=== PATIENT | female | born 1970 | race Two or more races ===

== ENCOUNTER 2021-02-21 08:24 | Outpatient (REF) | payer BC, SELFPAY | END 2021-02-21 08:25 | disposition home or self-care (01) | LOC: HO.LAB 08:24 | PROVIDERS: Visit Provider Internal Medicine | DX: Z20.822 Contact with and (suspected) exposure to COVID-19 (principal) | CPT/HCPCS: C9803; U0003; U0005 ==

== ENCOUNTER 2021-10-27 12:49 | Outpatient (REF) | payer BC, SELFPAY ==
--- NOTE | ~2021-10-27 | MM_ITS ---
EXAMINATION: MM SCREENING DIGITAL BREAST TOMOSYNTHESIS, BILATERAL CLINICAL INFORMATION: Screening. Asymptomatic. The lifetime risk of breast cancer based on the Tyrer-Cuzick Model is 11%. COMPARISON: Mammography: 09/24/2017, 05/20/2015, 05/14/2015 TECHNIQUE: Digital breast tomosynthesis is performed in both the craniocaudal and mediolateral oblique views along with computer-aided detection (CAD). Synthesized 2D images are generated from the tomosynthesis. Additional left MLO view is provided. FINDINGS: There are scattered areas of fibroglandular density (ACR BI-RADS breast composition Category b). There are no significant masses, abnormal calcifications, or other abnormalities. There is no developing density. No interval mass. Skin contours are smooth. No significant change from prior study. MM/MM tomosynthesis screening BI IMPRESSION: No mammographic evidence of malignancy. ASSESSMENT: BI-RADS 1: Negative RECOMMENDATION: Routine annual mammography screening. This patient's information was entered into a reminder system with a target due date for their next mammogram.
== END 2021-10-27 12:50 | disposition home or self-care (01) ==
LOC: HO.MAMMO 12:49
PROVIDERS: PCP Internal Medicine; Visit Provider Internal Medicine
DX: Z12.31 Encounter for screening mammogram for malignant neoplasm of breast (principal)
CPT/HCPCS: 77063; 77067

== ENCOUNTER 2022-04-07 11:04 | Outpatient (REF) | payer BC, SELFPAY ==
[2022-04-07 14:22] LABS: CT PCR NOT DETECTED (Not Detect.); NG PCR NOT DETECTED (Not Detect.)
[2022-04-10 19:06] LABS: HPV mRNA E6/E7 rflx Not Detected (Not Detected)
== END 2022-04-07 11:05 | disposition home or self-care (01) ==
LOC: HO.LAB 11:04
PROVIDERS: Visit Provider Advanced Practice Midwife
DX: Z01.419 Encounter for gynecological examination (general) (routine) without abnormal findings (principal); Z11.51 Encounter for screening for human papillomavirus (HPV); Z20.2 Contact with and (suspected) exposure to infections with a predominantly sexual mode of transmission
CPT/HCPCS: 87491; 87591; 87624; 88142

== ENCOUNTER 2022-09-24 16:21 | Outpatient (REF) | payer BC, SELFPAY ==
--- NOTE | ~2022-09-24 | XR_ITS ---
EXAMINATION: XR HAND, RIGHT CLINICAL INFORMATION: Pain COMPARISON: None TECHNIQUE: PA, lateral, and oblique views of the right hand. FINDINGS: The bones and soft tissues are normal. No fracture. Alignment is anatomic. Joint spaces are maintained. No erosions or soft tissue calcifications. XR/XR hand RT 2V IMPRESSION: Unremarkable right hand right hand.
[2022-09-24 16:44] LABS: MANUAL DIFF FLAG NO
[2022-09-24 17:28] LABS: Basophils Absolute Auto 0.1 X10*3/uL (0.0-0.2); Basophils Percent Auto 1.3 % (0-2); Eosinophils Absolute Auto 0.5 X10*3/uL (0.0-0.4); Hemoglobin 9.6 g/dl (12.0-16.0); Imm Gran Abs Auto 0.02 X10*3/uL (0.00-0.03); Imm Gran Pct Auto 0.3 % (0.0-0.4); Lymphocytes Absolute Auto 2.9 X10*3/uL (1.2-4.9); Lymphocytes Percent Auto 36.2 % (20-40); Mean Corpuscular Hemoglobin 20.7 pg (27.0-33.0); Mean Corpuscular Volume 69.1 fL (80.0-98.0); Mean Platelet Volume 9.6 fL (9.4-12.3); Monocytes Absolute Auto 0.5 X10*3/uL (0.1-1.2); Neutrophils Percent Auto 50.2 % (45-73); Platelet Count 461 X10*3/uL (160-400); Red Blood Count 4.63 X10*6/uL (4.20-5.50); Red Cell Distribution Width 19.5 % (11.0-16.0); White Blood Count 7.9 X10*3/uL (4.8-10.8)
[2022-09-24 18:06] LABS: Alanine Aminotransferase 18 U/L (0-31); Albumin Level 4.2 g/dL (3.5-5.0); Alkaline Phosphatase 141 U/L (39-117); Anion Gap 12 (12-20); Aspartate Amino Transferase 22 U/L (5-31); Bilirubin Total 0.3 mg/dL (0.0-1.0); Blood Urea Nitrogen 10 mg/dL (9-16); Carbon Dioxide 25 mmol/L (22-29); Chloride 107 mmol/L (96-108); Cholesterol 244 mg/dL; Estimated Glomerular Filt Rate > 60; Glucose Fasting 120 mg/dL (60-99); HDL Cholesterol 68 mg/dL; Iron 19 mcg/dL (30-160); LDL Cholesterol Calculated 161 mg/dl; Percent Iron Saturation 4 % (15-50); Potassium 4.7 mmol/L (3.3-5.1); Sodium 139 mmol/L (135-145); Thyroid Stimulating Hormone 1.36 uIU/mL (0.32-4.0); Total Iron Binding Capacity 437 mcg/dL (228-428); Total Protein 6.8 g/dL (6.5-8.0); Triglycerides 79 mg/dL; Unsaturated Iron Binding 418 ug/dL
[2022-09-24 18:08] LABS: Calcium 9.1 mg/dL (8.4-10.2)
[2022-09-25 05:14] LABS: Syphilis Screen Nonreactive (Nonreactive)
[2022-09-25 07:30] LABS: HBc Num1 0.07 S/CO (0.00-0.79); HIV AB/AG Nonreactive (Nonreactive); HIV Num 1 0.06 S/CO (0.00-0.99); Hepatitis B Core Antibody Nonreactive (Nonreactive); ~HepC Num1 0.06 S/CO (0.00-0.79); ~Hepatitis C Antibody Nonreactive (Nonreactive)
== END 2022-09-24 16:22 | disposition home or self-care (01) ==
LOC: HO.LAB 16:21
PROVIDERS: Advanced Practice Midwife; PCP Internal Medicine; Visit Provider Internal Medicine
DX: Z00.00 Encounter for general adult medical examination without abnormal findings (principal); D64.9 Anemia, unspecified; M79.641 Pain in right hand; E66.3 Overweight; Z20.2 Contact with and (suspected) exposure to infections with a predominantly sexual mode of transmission
CPT/HCPCS: 36415; 73120; 80053; 80061; 83540; 84443; 85025; 86704; 86780; 86803; 87389

== ENCOUNTER 2023-12-15 10:46 | Outpatient (REF) | payer BC, SELFPAY ==
[2023-12-22 12:49] LABS: HPV mRNA E6/E7 rflx Not Detected (Not Detected)
== END 2023-12-15 10:47 | disposition home or self-care (01) ==
LOC: HO.LNP 10:46
PROVIDERS: Obstetrics & Gynecology; PCP Internal Medicine; Visit Provider Advanced Practice Midwife
DX: Z01.419 Encounter for gynecological examination (general) (routine) without abnormal findings (principal); Z11.51 Encounter for screening for human papillomavirus (HPV)
CPT/HCPCS: 87624; 88142

== ENCOUNTER 2023-12-15 10:46 | Outpatient (AMB) | payer BC, SELFPAY ==
--- NOTE | 2023-12-15 10:49 | MHC.OFFVIS ---
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 She is doing well with no concerns. Attempting to eat a healthy diet with calcium and vitamin D and stays active with walking. Currently sexually active. Denies any vaginal dryness or irritation. STI testing offered; she declines. Last pap smear; 2021. Hx. HPV 2014-. Last mammogram; not UTD, booked 12/2023. Lapse in care due to living in [place] when father passed last year. Colonoscopy is not UTD. Denies any family history of breast, ovarian or colon cancer. [facility] Medical History Physical exam Overweight (BMI 25.0-29.9) Surgical History History of Family History Father No problems noted. Mother No problems noted. Social History Housing: House Alcohol intake: current Alcohol intake frequency: holidays/special occasions only Alcohol type: beer Patient Tobacco Use Status: Never used Tobacco e-Cigarette/Vaping Use: Never Used Second Hand Smoke Exposure: No service: No Current occupational status: employed Current occupational exposures/hazards: No Cognitive needs: No Hearing needs: No Vision needs: No Female Reproductive History Menstrual Total pregnancies: 1 Full term: 1 Number of Living Children: 1 Date of last pap smear: 04/07/22 (neg pap and hpv) Date of Mammogram: 10/27/21 (Birad 1) Review of Systems Const All systems reviewed & are unremarkable except as noted in HPI and below Reports as per HPI Eyes Reports no additional complaints ENT Reports no additional complaints Card Reports no additional complaints Resp Reports no additional complaints GI Reports as per HPI and Reports no additional complaints Reports as per HPI Musc Reports no additional complaints Skin/Breast Reports as per HPI Neuro Reports no additional complaints Psych Reports no additional complaints Endo Reports no additional complaints Hai/Lymph Reports no additional complaints Aller/Immun Reports no additional complaints Physical Exam Vital Signs: Last Vital Signs BP 110/70 12/15/23 10:51 BMI result Body Mass Index 30.3 Const General: cooperative, healthy appearing, no acute distress, well developed and alert Orientation/consciousness: patient oriented x3 HEENT Head: Yes normal to inspection Eyes General: appearance normal, both eyes and all related structures Neck Neck: Yes normal visual inspection Thyroid: Thyroid normal Chest Chest palpation & inspection: normal inspection of the chest and other (no puckering, dimpling, peau de orange, retraction, discharge, masses) Breast/axilla inspection: normal inspection of the breasts Breast/axilla palpation: normal palpation of the breasts Resp Effort & Inspection: normal respiratory effort GI Inspection: Yes normal to inspection Palpation (GI): Soft to palpation Rectal Exam - Female: deferred General: Yes bladder normal to palpation External Female Exam: normal external appearance and normal appearance of the urethra Speculum Exam - Vagina: normal appearance of the vagina, normal palpation, normal vaginal discharge and vagina atrophic Speculum Exam - Cervix: normal appearance of the cervix and normal palpation Bimanual exam- vagina & uterus: normal bimanual exam, normal palpation, uterine size normal, bladder normal to palpation, normal palpation and non-tender Bimanual Exam- Adnexa, other: no masses Skin General skin exam: no rashes or lesions noted Rashes: no rashes Neuro General: patient oriented x3 Cognition (Neuro): normal cognition Extrem General: Yes normal to inspection Psych Attitude: cooperative Thought process: Normal thought process present Assessment & Plan Assessment & Plan (1) Encounter for well woman exam with routine gynecological exam: Code(s): Z01.419 - Encounter for gynecological examination (general) (routine) without abnormal findings Plan Discussed: Current recommendations for pap smears per ASCCP guidelines. Breast awareness, periodic self breast exams and yearly mammogram. Maintain a healthy lifestyle, well balanced diet including Calcium 1,200 mg and Vitamin D 600 IU daily, and routine exercise. Contact the office with any postmenopausal bleeding. Patient verbalizes understanding and agrees to the plan of care. She was given opportunity to ask questions and all questions were answered to the best of my ability. RTO in 1 year for annual ob/gyn exam. This note is constructed using voice recognition software. While every effort has been made to ensure accuracy, differential tester errors may have been included. Orders: Orders Pap Smear Today Z01.419 - Encounter for gynecological examination (general) (routine) without abnormal findings Coding Level of Care Code Est Pt Prev Care 40-64y(54454) Diagnoses Encounter for well woman exam with routine gynecological exam Z01.419
[2023-12-15 10:51] VITALS: BP 110/70; BMI 30.3
== END 2023-12-15 11:17 | disposition home or self-care (01) ==
LOC: HO.HWS 10:46
PROVIDERS: PCP Internal Medicine; Visit Provider Advanced Practice Midwife
DX: Z01.419 Encounter for gynecological examination (general) (routine) without abnormal findings (principal)
CPT/HCPCS: 99396

== ENCOUNTER 2024-01-06 13:51 | Outpatient (REF) | payer BC, SELFPAY | END 2024-01-06 13:52 | disposition home or self-care (01) | LOC: HO.MAMMO 13:51 | PROVIDERS: PCP Internal Medicine; Visit Provider Internal Medicine | DX: Z12.31 Encounter for screening mammogram for malignant neoplasm of breast (principal) | CPT/HCPCS: 77063; 77067 ==

== ENCOUNTER → 2024-01-06 14:15 | Outpatient (BNV) | payer BC, SELFPAY | PROVIDERS: PCP Internal Medicine; Visit Provider Radiology Diagnostic Radiology | DX: Z12.31 Encounter for screening mammogram for malignant neoplasm of breast (principal) | CPT/HCPCS: 77063; 77067 ==

== ENCOUNTER 2025-01-11 13:43 | Outpatient (REF) | payer BC, SELFPAY | END 2025-01-11 13:44 | disposition home or self-care (01) | LOC: HO.MAMMO 13:43 | PROVIDERS: PCP Internal Medicine; Visit Provider Internal Medicine | DX: Z12.31 Encounter for screening mammogram for malignant neoplasm of breast (principal) | CPT/HCPCS: 77063; 77067 ==

== ENCOUNTER → 2025-01-11 14:00 | Outpatient (BNV) | payer BC, SELFPAY | PROVIDERS: PCP Internal Medicine; Visit Provider Internal Medicine | DX: Z12.31 Encounter for screening mammogram for malignant neoplasm of breast (principal) | CPT/HCPCS: 77063; 77067 ==

== ENCOUNTER 2025-01-22 08:24 | Outpatient (AMB) | payer BC, SELFPAY ==
--- NOTE | 2025-01-22 08:28 | A.OFFPC_ITS ---
Vital Signs 01/22/25 08:30 Height 5 ft 6 in Weight 179 lb BMI 28.9 BP 110/58 L Blood Pressure Location Lt brachial Position Sitting Pulse 66 Pulse Source Pulse Oximeter Temp 97.5 F Temp Source Temporal Artery Scan Pulse Oximetry (%) 97 Oxygen Delivery Method Room Air Intake Visit Reasons: annual physical Intake Note: Patient is here today for a physical. 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: Pre[employer] Name: Radha Modi Information Interpreted: non-clinical & clinical Shale Miner: Not Required per policy Accompanied by: Self / Same As Patient Allergies No Known Allergies [No Known Allergies*] Allergy (Verified 01/22/25 08:39) Medication List - Last Reconciled 01/22/25 by ANTHONY Villegas No Known Home Meds Tobacco use date assessed: 01/22/25 Dental Screening Dental Screen Date: 01/22/25 Did you have a dental visit in the last 12 months?: Yes Did you have a dental problem in the last 6 months where you did not have access to dental care?: No Was dental information given to patient?: Patient has dentist HPI annual physical HPI Details Patient is a 54-year-old female was presenting for annual physical Dentist: up to date Eye: up to date Snellen: Right: Left: Corrected vision:glasses STI screening: Colonoscopy: She has never done a colonoscopy before and would like to be scheduled Mammogram: last week Pap Smer: In Feb, 2025 PHQ-9: Flu: decline COVID: x 4 Tdap: reports that she know that she had it done, but she cannot remember when Diet: regular Exercise: walks on the treadmill 3 times a week for 30 minutes Reports that she has no concerns today. The patient is never done a colonoscopy. Reports that this is part of the reason why she is here today we will refer the patient to GI. [facility] Medical History Physical exam Overweight (BMI 25.0-29.9) Surgical History History of Family History Father No problems noted. Mother No problems noted. Social History Housing: House Alcohol intake: current Alcohol intake frequency: holidays/special occasions only Alcohol type: beer Patient Tobacco Use Status: Never used Tobacco e-Cigarette/Vaping Use: Never Used Second Hand Smoke Exposure: No service: No Current occupational status: employed Current occupational exposures/hazards: No Cognitive needs: No Hearing needs: No Vision needs: Yes (Glasses) Questionnaire PHQ-9 Over the last 2 weeks, how often have you been bothered by any of the following problems? 1. Little interest or pleasure in doing things: not at all 2. Feeling down, depressed, or hopeless: not at all 3. Trouble falling or staying asleep, or sleeping too much: several days 4. Feeling tired or having little energy: not at all 5. Poor appetite or overeating: not at all 6. Feeling bad about yourself - or that you are a failure or have let yourself or your family down: not at all 7. Trouble concentrating on things, such as reading the newspaper or watching television: not at all 8. Moving or speaking so slowly that other people could have noticed. Or the opposite - being so fidgety or restless that you have been moving around a lot more than usual: not at all 9. Thoughts that you would be better off or of hurting yourself in some way: not at all Total score: 1 Depression Screening Interpretation: Negative Depression Screening Done: Yes 25450 - PHQ-9 Billing: Yes Source: Developed by Drs. Raymond Lockett, Cindi Alfaro, Sharath Cruz and colleagues, with an educational hollie from [employer]. Thrive Questionnaire Date Thrive assessed: 01/22/25 I am a: Patient What is your living situation today?: I have a steady place to live Within the past 12 months, did the food you bought not last and you didn't have the money to get more?: Never true Within the past 12 months, did you worry whether your food would run out before you got money to buy more?: Never true Do you have trouble paying for medicines?: No Do you have trouble getting transportation to medical appointments?: No Do you have trouble paying your heating and electricity bill?: I choose not to answer this question Do you have trouble taking care of your child, family member or friend?: No Do you have trouble with day-to-day activities such as bathing, preparing meals, shopping, managing finances, etc.?: No Are you currently unemployed and looking for a job?: No Are you interested in more education?: No Please select the resources that you would like help with: Utilities Currently or been in a relationship where the following occur: No concerns reported THRIVE Score: 0 AUDIT C Alcohol Use Questionnaire (AUDIT-C) 1. How often do you have a drink containing alcohol?: Monthly or less 2. How many drinks containing alcohol do you have on a typical day when you are drinking?: 3 or 4 3. How often do you have six or more drinks on one occasion?: Less than monthly Total Score: 3 ANEESH-7 AMB Questionnaire ANEESH-7 Date ANEESH - 7 assessed: 01/22/25 Feeling nervous, anxious, or on edge: 0 = Not at all Not being able to stop or control worryin = Not at all Worrying too much about different things: 0 = Not at all Trouble relaxin = Not at all Being so restless that it is hard to sit still: 0 = Not at all Becoming easily annoyed or irritable: 0 = Not at all Feeling afraid as if something awful might happen: 0 = Not at all Total ANEESH-7 score (0-4 normal; 5-9 mild; 10-14 moderate; 15-21 severe): 0 Source: Developed by Drs. Raymond Lockett, Cindi Alfaro, Sharath Cruz and colleagues, with an educational hollie from [employer]. ANEESH-7 Assessment Billing ANEESH-7 Assessment Tool: ANEESH-7 Assessment 48266 Review of Systems Const Denies headache(s) Eyes Denies loss of vision ENT Denies vertigo, Denies dizziness, Denies otalgia, Denies headache(s), Denies tinnitus, Denies sinus pressure and Denies sore throat Card Denies chest pain, Denies leg edema and Denies lightheadedness Resp Denies cough, Denies hemoptysis and Denies wheezing GI Denies abdominal pain, Denies melena, Denies constipation, Denies diarrhea and Denies vomiting Denies urinary frequency, Denies dysuria and Denies urinary urgency Musc Denies arthralgias, Denies joint swelling, Denies numbness and Denies tingling Neuro Denies Abnormal speech present, Denies behavioral changes, Denies vertigo, Denies dizziness, Denies headache(s), Denies loss of vision, Denies memory loss, Denies numbness and Denies tingling Psych Denies anxiety, Denies behavioral changes, Denies depression, Denies memory loss and Denies panic attacks Hai/Lymph Denies easy bleeding and Denies easy bruising Aller/Immun Denies wheezing Physical exam (Primary Care) Vital Signs: Last Vital Signs Temp 97.5 F 01/22/25 08:30 Pulse 66 01/22/25 08:30 BP 110/58 L 01/22/25 08:30 Pulse Ox 97 01/22/25 08:30 Oxygen Delivery Method Room Air 01/22/25 08:30 BMI result Body Mass Index 28.9 Tobacco/Smoking Status: Tobacco use Status Tobacco use date assessed 01/22/25 01/22/25 08:37 Patient Tobacco Use Status Never used Tobacco 01/22/25 08:37 e-Cigarette/Vaping Use Never Used 01/22/25 08:37 PHQ-9: PHQ-9 Score PHQ-9: Total score 1 01/22/25 08:37 Depression Screening Interpretation: Negative Thrive Assessment: Date of Thrive Assessment Date Thrive assessed 01/22/25 01/22/25 08:37 Currently or been in a relationship where the following occur: No concerns reported Const General: healthy appearing, no acute distress, alert and awake Nutritional Appearance: well nourished Orientation/consciousness: oriented to person, oriented to place and oriented to time [facility] Ears: TM normal on the right, TM normal on the left (unable to visualize) and Abnormal EAC present cerumen impaction on the left General nose exam: Normal nasal mucous membranes and turbinates present Mouth: oropharynx normal Throat: Yes posterior oropharynx normal Eyes Conjunctivae: conjunctivae normal Sclerae: sclerae normal Pupils: Equal, round and reactive pupils present Neck Neck: Yes no lymphadenopathy and Yes no JVD Thyroid: Thyroid normal Carotids: no bruits Resp Effort & Inspection: normal respiratory effort and not tachypneic Auscultation: no crackles, no rales, no rhonchi and no wheezes Cardio Rate: regular rate Rhythm: regular rhythm Heart sounds: no murmurs and normal S1 and S2 GI Palpation (GI): Soft to palpation, nontender, no hepatomegaly and no splenomegaly Auscultation: normal bowel sounds Skin General skin exam: no rashes or lesions noted and dry skin Neuro General: oriented to person, oriented to place and oriented to time Cranial nerves: Yes Equal, round and reactive pupils present Speech: No Abnormal speech present Gait exam (Neuro): Normal gait present Motor exam (neuro): no tremor noted Extrem Right upper extremity: full ROM Left upper extremity: full ROM Right lower extremity: full ROM; no edema Left lower extremity: full ROM; no edema Psych Mental Status: mental status grossly normal Speech and movement: Normal speech and movement present Affect: normal affect Attitude: cooperative Thought process: Normal thought process present Coding Level of Care Code Est Pt Prev Care 40-64y(14205) Diagnoses Physical exam Z00.00 Overweight (BMI 25.0-29.9) E66.3 Iron deficiency anemia, unspecified iron deficiency anemia type D50.9 Iron deficiency anemia type: unspecified iron deficiency Left ear impacted cerumen H61.22 Screening for colorectal cancer Z12.11; Z12.12 Additional Codes PHQ-9 - 02017 - PHQ-9 Billing: Yes ([id number]) ANEESH-7 Assessment Billing - ANEESH-7 Assessment Tool: ANEESH-7 Assessment 77435 ([id number]) Time Spent (min) 33 Assessment & Plan Assessment & Plan (1) Physical exam: Code(s): Z00.00 - Encounter for general adult medical examination without abnormal findings Category: Medical Plan: Preventative guidelines reviewed with the patient. No recent labs. The patient was last seen in office in 2021. Patient had her mammogram done last week and is scheduled for Pap smear in February. She have never done a colonoscopy and would like to be scheduled for this. We will refer the patient to GI. (2) Overweight (BMI 25.0-29.9): Code(s): E66.3 - Overweight Category: Medical Plan: Reinforced low-cholesterol diet. The patient reports that she is walking 30 minutes on the treadmill 3 times/wk (3) Iron deficiency anemia: Code(s): D50.9 - Iron deficiency anemia, unspecified Category: Medical Qualifiers: Iron deficiency anemia type: unspecified iron deficiency Qualified Code(s): D50.9 - Iron deficiency anemia, unspecified Plan: Patient has a history of iron anemia, no recent blood work. We will order CBC and iron panel to evaluate (4) Left ear impacted cerumen: Code(s): H61.22 - Impacted cerumen, left ear Category: Medical Plan: Debrox ear drops ordered and the process was explained to the patient. (5) Screening for colorectal cancer: Code(s): Z12.11 - Encounter for screening for malignant neoplasm of colon; Z12.12 - Encounter for screening for malignant neoplasm of rectum Category: Medical Plan: GI referral placed Plan Labs ordered for the patient to complete as soon as possible Orders: Orders Comprehensive [place]. Panel Fast Today D50.9 - Iron deficiency anemia, unspecified, E66.3 - Overweight, Z00.00 - Encounter for general adult medical examination without abnormal findings Lipid Panel Today D50.9 - Iron deficiency anemia, unspecified, E66.3 - Overweight, Z00.00 - Encounter for general adult medical examination without abnormal findings IRON PROFILE Today D50.9 - Iron deficiency anemia, unspecified, E66.3 - Overweight, Z00.00 - Encounter for general adult medical examination without abnormal findings Glucose Fasting Today D50.9 - Iron deficiency anemia, unspecified, E66.3 - Overweight, Z00.00 - Encounter for general adult medical examination without abnormal findings TSH reflex Free T4 Today D50.9 - Iron deficiency anemia, unspecified, E66.3 - Overweight, Z00.00 - Encounter for general adult medical examination without abnormal findings UA CC w/rflx Micro + Cult Today D50.9 - Iron deficiency anemia, unspecified, E66.3 - Overweight, Z00.00 - Encounter for general adult medical examination without abnormal findings Complete Blood Count Auto Diff Today D50.9 - Iron deficiency anemia, unspecified, E66.3 - Overweight, Z00.00 - Encounter for general adult medical examination without abnormal findings Vitamin D 25-OH Total Today D50.9 - Iron deficiency anemia, unspecified, E66.3 - Overweight, Z00.00 - Encounter for general adult medical examination without abnormal findings Referrals Gastroenterology Referral Z12.11 - Encounter for screening for malignant neoplasm of colon, Z12.12 - Encounter for screening for malignant neoplasm of rectum Medications: New carbamide peroxide 6.5% (Debrox) 5 drps otic (ears) Q12H 4 days 15 mL 0RF H61.22 - Impacted cerumen, left ear
[2025-01-22 08:30] VITALS: BP 110/58; PULSE 66; TEMP 36.4; O2SAT 97; BMI 28.9
== END 2025-01-22 10:01 | disposition home or self-care (01) ==
LOC: HO.HMCH 08:25
PROVIDERS: PCP Internal Medicine
DX: Z00.00 Encounter for general adult medical examination without abnormal findings (principal); E66.3 Overweight; D50.9 Iron deficiency anemia, unspecified; H61.22 Impacted cerumen, left ear; Z12.11 Encounter for screening for malignant neoplasm of colon; Z12.12 Encounter for screening for malignant neoplasm of rectum

== ENCOUNTER → 2025-01-22 08:24 | Outpatient (BNVA) | payer BC, SELFPAY | PROVIDERS: PCP Internal Medicine | DX: Z00.00 Encounter for general adult medical examination without abnormal findings (principal); E66.3 Overweight; D50.9 Iron deficiency anemia, unspecified; H61.22 Impacted cerumen, left ear | CPT/HCPCS: 96127 ==

== ENCOUNTER 2025-01-25 06:48 | Outpatient (REF) | payer BC, SELFPAY ==
[2025-01-25 07:04] LABS: MANUAL DIFF FLAG NO
[2025-01-25 07:54] LABS: Basophils Absolute Auto 0.1 X10*3/uL (0.0-0.2); Basophils Percent Auto 1.1 % (0-2); Eosinophils Absolute Auto 0.4 X10*3/uL (0.0-0.4); Eosinophils Percent Auto 7.2 % (0-4); Hemoglobin 12.3 g/dl (12.0-16.0); Imm Gran Abs Auto 0.01 X10*3/uL (0.00-0.03); Imm Gran Pct Auto 0.2 % (0.0-0.4); Lymphocytes Absolute Auto 2.2 X10*3/uL (1.2-4.9); Lymphocytes Percent Auto 39.2 % (20-40); Mean Corpuscular HGB Conc 31.5 g/dl (31.0-35.0); Mean Corpuscular Volume 76.2 fL (80.0-98.0); Mean Platelet Volume 10.1 fL (9.4-12.3); Monocytes Absolute Auto 0.3 X10*3/uL (0.1-1.2); Monocytes Percent Auto 5.6 % (2-11); Neutrophils Absolute Auto 2.6 x10*3/uL (2.0-8.3); Neutrophils Percent Auto 46.7 % (45-73); Platelet Count 326 X10*3/uL (160-400); Red Blood Count 5.12 X10*6/uL (4.20-5.50); Red Cell Distribution Width 15.9 % (11.0-16.0); White Blood Count 5.6 X10*3/uL (4.8-10.8)
[2025-01-25 09:01] LABS: Appearance Urine Cloudy; Color Urine Yellow; Glucose Urine UA Negative (Negative); Leukocyte Esterase Urine Small (1+) (Negative); Nitrite Urine Negative (Negative); PH 6.5 (5.0-9.0); Specific Gravity - Urine 1.025 (1.005-1.025); UMIC TRIGGER UACC YES; Urine Blood Negative (Negative); Urine Ketones Trace mg/dL (Negative); Urine Protein Negative (Neg-Trace)
[2025-01-25 09:13] LABS: Bacteria Urine 2+ (None Seen); Hyaline Casts Urine 0-2 /LPF (0-2); RBC Urine 0-2 /HPF (0-2); UACC Culture Trigger YES; WBC Urine 0-5 /HPF (0-5)
[2025-01-25 09:20] LABS: Alanine Aminotransferase 24 U/L (0-31); Albumin Level 4.2 g/dL (3.5-5.0); Anion Gap 11 (12-20); Aspartate Amino Transferase 27 U/L (5-31); Bilirubin Total 0.6 mg/dL (0.0-1.0); Blood Urea Nitrogen 16 mg/dL (9-16); Calcium 9.5 mg/dL (8.4-10.2); Carbon Dioxide 26 mmol/L (22-29); Chloride 108 mmol/L (96-108); Cholesterol 263 mg/dL (<200); Estimated Glomerular Filt Rate > 60; Glucose Fasting 109 mg/dL (60-99); HDL Cholesterol 70 mg/dL (>40); Iron 101 mcg/dL (30-160); LDL Cholesterol Calculated 178 mg/dL (<100); Percent Iron Saturation 23 % (15-50); Potassium 4.2 mmol/L (3.3-5.1); Sodium 141 mmol/L (135-145); Total Iron Binding Capacity 441 mcg/dL (228-428); Total Protein 7.3 g/dL (6.5-8.0); Triglycerides 76 mg/dL (<150); Unsaturated Iron Binding 340 ug/dL
[2025-01-25 09:43] LABS: TSH reflex Free T4 1.82 uIU/mL (0.32-4.0); Vitamin D 25-OH Total 35.2 ng/mL (>30)
[2025-01-25 09:53] LABS: Alkaline Phosphatase 130 U/L (39-117)
== END 2025-01-25 06:49 | disposition home or self-care (01) ==
LOC: HO.LAB 06:48
PROVIDERS: PCP Internal Medicine
DX: D50.9 Iron deficiency anemia, unspecified (principal); Z00.00 Encounter for general adult medical examination without abnormal findings; E66.3 Overweight
CPT/HCPCS: 36415; 80053; 80061; 81001; 81003; 82306; 83540; 84443; 85025; 87086

== ENCOUNTER 2025-02-19 14:40 | Outpatient (AMB) | payer BC, SELFPAY ==
[2025-02-19 15:27] VITALS: BP 118/70; BMI 28.6
--- NOTE | 2025-02-19 15:27 | A.OFFVIS_ITS ---
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 She has 1 daughter delivered by who is birthdays in 2 days. She goes to the gym at least 3 times a week and she walks on the treadmill. Few sexually active with her but she has absolutely no concerns about STIs. Of interest she went through menopause about 4 or more years ago and stopped getting periods but only in the last 6 months as she started getting hot flashes and she is curious about why. She says they are not too bad she gets maybe 2 or 3 a week at most but she thought she was through menopause with no symptoms and here she is getting hot flashes for the 1st time. [facility] Medical History Physical exam Overweight (BMI 25.0-29.9) Surgical History History of Family History Father No problems noted. Mother No problems noted. 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 Current occupational exposures/hazards: No Sexual orientation: Straight/Heterosexual Gender identity: Female Cognitive needs: No Hearing needs: No Vision needs: Yes (Glasses) Female Reproductive History Menstrual Menopause type: natural Total pregnancies: 2 Full term: 1 Number of Living Children: 1 Ab spontaneous: 1 Date of last pap smear: 12/16/23 Date of Mammogram: 01/11/25 Physical Exam Vital Signs: Last Vital Signs BP 118/70 02/19/25 15:27 BMI result Body Mass Index 28.6 Const General: healthy appearing, comfortable, no acute distress, well developed and alert Nutritional Appearance: average body habitus Orientation/consciousness: patient oriented x3 Limitations: no limitations HEENT Head: Yes normocephalic Neck Neck: Yes normal visual inspection Chest Chest palpation & inspection: normal inspection of the chest Breast/axilla inspection: normal inspection of the breasts and normal inspection of the axillae Breast/axilla palpation: normal palpation of the breasts and normal palpation of the axillae Resp Effort & Inspection: normal respiratory effort GI Inspection: Yes normal to inspection, No Abdominal wall edema and No distended Palpation (GI): Soft to palpation and nontender Other: External exam within normal limits vagina is pink and moist there were mild atrophic changes but not very much cervix is pink smooth healthy appearing no mucus noted uterus midposition mobile nontender adnexa some mobile nontender good tone with Kegel. General: Yes bladder normal to palpation External Female Exam: normal external appearance and normal appearance of the urethra Speculum Exam - Vagina: normal appearance of the vagina, normal palpation and normal vaginal discharge Speculum Exam - Cervix: normal appearance of the cervix, normal palpation and nontender Bimanual exam- vagina & uterus: normal bimanual exam, normal palpation, uterine size normal, bladder normal to palpation, consistency normal, normal palpation, uterine mobility normal, uterine shape normal, No Cervical tenderness present, non-tender and no cervical motion tenderness Bimanual Exam- Adnexa, other: normal adnexae, no masses, normal and No adnexal tenderness Neuro General: patient oriented x3 Results Reviewed Results Reviewed: Name: Valencia Davis Age/Sex: 53/F Attending: Gabriella Albarran CNM : 1970 Submitted by: Gabriella Albarran CNM Copies to: Humaira Virgen MD MR #: [id number] Status: DEP REF Collected: 12/15/23 Location: [facility] Received: 12/16/23 Interpretation Satisfactory for evaluation. No endocervical cells seen. Coccobacilli consistent with shift in vaginal jose. Negative for intraepithelial lesion or malignancy. HPV mRNA E6/E7: NOT DETECTED This assay detects E6/E7 viral messenger RNA (mRNA) from 14 high-risk HPV types (16, 18, 31, 33, 35, 39, 45, 51, 52, 56, 58, 59, 66, 68) HPV testing performed by [facility], [place], [place]. See reference laboratory portion of the EMR for entire report. Clinical Information LMP: Postmenopausal Previous PAP test: 04/07/2022, HPV + Material Received ThinPrep-Cervical Copies To Gabriella Albarran CNM [address] [place] [address] [address] [place] [address] Humaira Virgen MD [address] [place] [address] [address] [place] [address] Electronically Signed By: BLAS Prescott (ASCP) 12/27/23 0711 The Pap Test is a screening procedure with the inherent possibility of both false negative and false positive results. Results should be interpreted in the context of historic and current clinical findings. Reliability of the Pap Test is enhanced by performing the test on a regular repetitive basis. Patient: Valencia Davis Age/Sex: 53/F MR#: [id number] Page 1 of 1 Assessment & Plan Assessment & Plan (1) Encounter for annual routine gynecological examination: Code(s): Z01.419 - Encounter for gynecological examination (general) (routine) without abnormal findings Category: Medical (2) Overweight (BMI 25.0-29.9): Code(s): E66.3 - Overweight Category: Medical (3) Breast cancer screening: Code(s): Z12.39 - Encounter for other screening for malignant neoplasm of breast Category: Medical (4) Cervical cancer screening: Comment: No history of abnormals, Pap smear Code(s): Z12.4 - Encounter for screening for malignant neoplasm of cervix Category: Medical Plan -----Discussed in this visit the following: healthy balanced diet, regular and consistent exercise, getting recommended health screens, doing the best she can for her particular health concerns, kegel exercises, pap smear screening and followup recommendations, mammography screening and SBE, normal changes in cycles in her life stage--- . Reviewed shira menopausal changes reviewed her hot flashes. Reviewed that there is a new medication that is sometimes prescribed but it acts more in the nervous system. She certainly could discuss this with her primary as well. She is not interested in in necessarily treating it she just found it interesting that she only started getting hot flashes in the last 6 months. She is otherwise healthy and does not have any concerns and is trying to take care of herself as best she can at this stage of her life. She is not experiencing any other negative side effects with menopause. Coding Level of Care Code Est Pt Prev Care 40-64y(82704) Diagnoses Encounter for annual routine gynecological examination Z01.419 Overweight (BMI 25.0-29.9) E66.3 Breast cancer screening Z12.39 Cervical cancer screening Z12.4
== END 2025-02-19 16:38 | disposition home or self-care (01) ==
LOC: HO.HWS 14:40
PROVIDERS: PCP Internal Medicine; Visit Provider Advanced Practice Midwife
DX: Z01.419 Encounter for gynecological examination (general) (routine) without abnormal findings (principal); E66.3 Overweight
CPT/HCPCS: 99396; 99459

== ENCOUNTER 2025-06-13 12:22 | Outpatient (AMB) | payer BC, SELFPAY ==
--- OUTSIDE RECORDS SUMMARY | 2025-05-10 06:30 | XMS_ITS | Continuity of Care Document ---
Author Organization [facility] Address [address] [place] [address] Phone Care Team Providers Care All Purpose Clerk Name Role Phone Jean LANCE, RUBEN, Raymond BOYER Unavailable U navailable Allergies, Adverse Reactions, Alerts Substance Reaction Status Criticality No Known Allergies Active No Inform ation Procedures Procedure Date Duplex Scan-extrem Veins; Uni/ CT & [place] J Endovenous Laser, 1st Vein- CT & [place] Varithena, Single Truncal Vein - CT & [place] Duplex Scan-extrem Veins; Uni/ CT & [place] J Varithena, Single Truncal Vein - CT & [place] Endovenous Rf, 1st Vein- CT & [place] 2024 Office/Oupt E&M New Pt 45 Mins- CT & [place] PT Did Not Receive Services Duplex Scan-extrem Veins; Comp- CT & [place] Advance Directives Directive Yes / No Effective Date File Name No Information Encounters Encounter Description Practice Location Reason(s) For Visit Diagnoses Date Provider Providers Copied on Encounter [facility], [address] [place] [address] [address], [id number], [place] tel:[phone] [facility] Chronic venous hypertension (idiopathic) with other complications of left lower extremity Jean LANCE, RUBEN, MERLIN Andrade. [address], [facility], [place], [id number] , [place]. [phone] Referring Provider: Humaira Reynolds MD, [address] [facility] [address], [address] [place] [address] D/B/A: [facility] [place], [address]. tel:[phone] [facility], [address] [place] [address] [address], [id number], [place] tel:[phone] [facility] [place] [facility] [place] Varicose veins of left lower extremity with other complications 5 Jean LANCE RVT, MERLIN Andrade. [address] [facility], [address], [facility], [place], [id number] , [place]. [phone] Referring Provider: Humaira Reynolds MD, [address] [facility] [address], [address] [place] [address] D/B/A: [place], [address]. tel:[phone] [facility], [address] [place] [address] [address], [id number], [place] tel:[phone] [facility] [place] [facility] [place] Varicose veins of left lower extremity with other complications 5 Jean LANCE RVT, MERLIN Andrade. [address] [facility], [address], [facility], [place], [id number] , [place]. [phone] Referring Provider: Humaira Reynolds MD, [address] [facility] [address], [address] [place] [address] D/B/A: [place], [address]. tel:[phone] [facility], [address] [place] [address] [address], [id number], [place] tel:[phone] [facility] [place] Encounter for follow-up examination after completed treatment for conditions other than malignant neoplasmVaric ose veins of right lower extremity with pain 5 Jean LANCE RVT, MERLIN Andrade. [address] [facility], [address], [facility] [place], [id number] , [place]. tel:[phone] Referring Provider: Humaira Reynolds MD, [address] [facility] [address], [address] [place] D/B/A: [facility] [place], [address]. [phone] [facility], [address] [place] [address] [address], [id number], [place] tel:[phone] [facility] - [place] [facility] [place] Chronic venous hypertension (idiopathic) with inflammation of right lower extremity 5 Jean LANCE RVT, MERLIN Andrade. [address] [facility], [address], [place], [place], [id number] , [place]. tel:[phone] Referring Provider: Humaira Reynolds MD, [address] [facility] [address], [address] [place] D/B/A: [place], [address]. tel:[phone] [facility], [address] [place] [address] [address], [id number], [place] tel:[phone] [facility] - [facility] Varicose veins of right lower extremity with other complications 5 Jean LANCE RVT, MERLIN Andrade. [address] [facility], [address], [place], [place], [id number] , [place]. tel:[phone] Referring Provider: Humaira Reynolds MD, [address] [facility] [address], [address] [place] D/B/A: [place], [address]. tel:[phone] [facility], [address] [place] [address] [address], [id number], [place] tel:[phone] [facility] [place] No Information 5 Jean LANCE RVT, MERLIN Andrade. [address] [facility], [address], [place], [place], [id number] , [place]. tel:[phone] Office/Oupt E&M New Pt 45 Mins- CT & [place] [facility], [address] [place] [address] [address], [id number], tel:[phone] [facility] [place] Pain in left legHereditary lymphedemaCra mp and spasmLocalize d edemaVaricose veins of bilateral lower extremities with other complications Pain in right lower legPain in left lower legPain in right legRestless legs syndromeLymph edema, not elsewhere classifiedPru ritus, unspecified 5 Jean LANCE RVT, MERLIN Andrade. [address] [facility], [address], [place], [place], [id number] , [place]. tel: [phone] Referring Provider: Humaira Reynolds MD, [address] [facility] , [address] [place] [address] D/B/A: [place], [address]. tel:[phone] [facility], [address] [place] [address] [facility] [address] [address], [id number], [place] tel:[phone] [facility] [place] No Information 5 Jean LANCE RVT, MERLIN Andrade. [address] [facility], [address], [place], [place], [id number] , [place]. tel: [phone] Referring Provider: Humaira Reynolds MD, [address] [facility] , [address] [place] [address] D/B/A: [place], [address]. tel:[phone] [facility], [address] [place] [address] [address], [place], [id number], tel:[phone] [facility] [place] [facility] [place] Chronic venous hypertension (idiopathic) with other complications of bilateral lower extremity 5 Jean LANCE RVT, MERLIN Andrade. [address] [facility], [address], [place], [place], [id number] , [place]. tel:[phone] Referring Provider: Humaira Reynolds MD, [address] [facility] , [address] [place] [address] D/B/A: [place], [address]. tel:[phone] Family History Family Member Type Diagnosis Age At Onset No Information Payers Payer name Insurance type Covered green party ID Madi grant(s) TRAMAINE RAVI [id number] Social History Type Description Quantity Date Captured Comments Sex Female Smoking Status No Information Chief Complaint And Reason For Visit No Information Reason For Referral Reason For Referral No Information Plan Of Treatment Date Type Action Status Goal Diet education completed Referral Ordered: Weight management: Referral to physician timeframe: 3 Months (related to Body mass index (BMI) 29.0-29.9, adult) ordered Appointment Valencia Davis BOOKED Appointment Valencia Davis BOOKED History Of Present Illness Encounter Date Complaint History Of Prese nt Illness No Information Functional Status Date Functional Assessmen t No Information Instructions Date Instruction Additional Infor mation Pre and post instruc tions reviewed and provided Related to Varicose veins of bilateral lower extremities with other complications Patient education booklet given Related to Varicose veins of bilateral lower extremities with other complications Lifestyle education Related to B mariusz mass index (BMI) 29.0-29.9, adult Giving Encouragement to exercise Related to Body mass index (BMI) 29.0-29.9, adult Diet education Related to Body mass index (BMI) 29.0-29.9, adult Assessments Type Assessment Date No Information Patient Care Teams Name Effective Dates (start - stop) Status Members No Information
--- NOTE | 2025-06-13 12:28 | A.OFFVIS_ITS ---
Vital Signs 06/13/25 12:29 Height 5 ft 6 in Weight 176 lb 5.917 oz BMI 28.5 BP 129/78 Blood Pressure Location Lt brachial Position Sitting Pulse 73 Intake Visit Reasons: Colonoscopy Screening Intake Note: Valencia presents in the office as a new patient colonoscopy screening. CC: this will be patients first colonoscopy - never had one before. She states sometime she has some pains in the stomach but not often. Senior Hardware Engineer Required: Yes Senior Hardware Engineer Name: [id number] Allergies No Known Allergies (No Known Allergies*) Allergy (Verified 06/13/25 12:28) Medication List - Last Reconciled 06/13/25 by Lolis Martin CNP No Known Home Meds HPI HPI Colonoscopy Screening: Details: Patient is a 54-year-old female with PMH of overweight. Referred by PCP for pre colonoscopy screening. This will be Valencia's 1st colonoscopy, no prior stool based screening. She report having daily bowel movements without experiencing diarrhea, constipation, or blood in the stool. They report no heartburn or dysphagia and describe their appetite as stable except when eating more than usual while dining at restaurants, which can lead to stomach pain localized to the mid-lower abdomen. This stabbing pain occurs episodically, typically every two weeks, primarily after overeating, and resolves without additional intervention. They deny associated symptoms such as nausea, vomiting, or weight changes. There is a previous diagnosis of iron deficiency anemia, though recent labs in January showed normalized iron levels. However, one liver enzyme was elevated during fasting labs. A significant family history includes a maternal diagnosis of cancer involving the gallbladder, duodenum, and liver. The patient denies previous symptoms consistent with alarm features, such as unexplained weight loss, blood or stool changes, or persistent upper abdominal pain. Social hx: - Drinks alcohol approximately once a month, consuming 4?5 beers -denies recreational drug use -non-smoker - family hx as below - denies personal hx of CA -denies significant cardiopulmonary history -tolerated anesthesia in the past without difficulty. [facility] Medical History (Updated 06/13/25 @ 13:43 by Lolis Martin CNP) Family history of cancer Elevated alkaline phosphatase level Physical exam Overweight (BMI 25.0-29.9) Surgical History History of Family History (Updated 06/13/25 @ 12:59 by Lolis Martin CNP) Father No problems noted. 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 Current occupational exposures/hazards: No Sexual orientation: Straight/Heterosexual Gender identity: Female Cognitive needs: No Hearing needs: No Vision needs: Yes (Glasses) Review of Systems Const Reports as per HPI ENT Reports as per HPI Card Reports as per HPI Resp Reports as per HPI GI Reports as per HPI Reports as per HPI Physical Exam Vital Signs: Last Vital Signs Pulse 73 06/13/25 12:29 BP 129/78 06/13/25 12:29 BMI result Body Mass Index 28.5 Const General: healthy appearing, no acute distress and well developed Nutritional Appearance: average body habitus Orientation/consciousness: patient oriented x3 HEENT Head: Yes normal to inspection, Yes normocephalic and Yes atraumatic Face and sinus: Yes normal facial exam Eyes General: appearance normal, both eyes and all related structures Neck Neck: Yes normal visual inspection Resp Effort & Inspection: normal respiratory effort, able to speak in complete sentences, no tracheal deviation and symmetric chest movement GI Inspection: Yes normal to inspection and No distended Palpation (GI): Soft to palpation, not firm, nontender and No hepatosplenomegaly present Auscultation: normoactive bowel sounds Neuro General: patient oriented x3 Gait exam (Neuro): Normal gait present Psych Appearance: grossly normal Mental Status: mental status grossly normal Speech and movement: Normal speech and movement present Affect: normal affect Attitude: cooperative Thought process: Normal thought process present Thought content: Normal thought content present Insight: Good insight present (Psych) Judgement: Good judgement present (Psych) Assessment & Plan Assessment & Plan (1) Screening for colorectal cancer: Code(s): Z12.11 - Encounter for screening for malignant neoplasm of colon; Z12.12 - Encounter for screening for malignant neoplasm of rectum Category: Medical Plan: Due for index screening colonoscopy. No alarm features. Medications: -prescriptions for laxative tablets and MiraLax sent to pharmacy; instructions for Gatorade purchase and clear liquid diet given. Patient educated on scheduling process, procedure preparation, including avoiding certain foods and ensuring clear liquid intake Advised on necessity for ride post-procedure due to sedation. (2) Elevated alkaline phosphatase level: Code(s): R74.8 - Abnormal levels of other serum enzymes Category: Medical Plan: Elevated fasting alkaline phosphate warrants further investigation to rule out pathology, especially given maternal history of hepatobiliary malignancy. Presence of a known risk factor (maternal cancer as below) Additional Testing: Ordered repeat liver function panel and abdominal ultrasound to assess for hepatopancreatobiliary abnormalities, including cholestasis evaluation. Lifestyle Recommendations: Patient advised to ensure fasting for at least eight hours before repeat labs. Follow-Up: Results of liver panel and ultrasound to be reviewed at next follow- up. (3) Family history of cancer: Code(s): Z80.9 - Family history of malignant neoplasm, unspecified Category: Medical Plan: Mother, diagnosised at age 79. Includes gallbladder, duodenum, liver, orgin unclear. History increases risk for GI malignancy; supports need for timely screening and thorough evaluation of abnormal labs. Additional Testing: As above?colonoscopy, LFTs, abdominal US. Counseling: Discussed importance of family history in risk assessment. Encouraged to seek further details from maternal oncology team regarding possible hereditary syndromes Plan Follow-up 3 months or sooner as needed Time: I spent a total of 45 minutes on the date of encounter which includes: Preparing to see the patient (reviewed previous documentation, test results and medical history) Performing a medically appropriate exam and/or evaluation Ordering medications, tests, and procedures Documenting clinical information in the health record Orders: Orders Alkaline Phosphatase Isoenzyme Today R74.8 - Abnormal levels of other serum enzymes Gamma Glutamyl Transpeptidase Today R74.8 - Abnormal levels of other serum enzymes US abdomen complete Today R74.8 - Abnormal levels of other serum enzymes Medications: New bisacodyl Take per colonoscopy instructions 5 mg PO BID 4 tabs 0RF polyethylene glycol 3350 (Miralax) per colonoscopy prep instructions 238 grams PO ONCE 238 grams 0RF Coding Level of Care Code New Pt New Pt Level 4 (01536) Patient Type New Diagnoses Screening for colorectal cancer Z12.11; Z12.12 Elevated alkaline phosphatase level R74.8 Family history of cancer Z80.9
[2025-06-13 12:29] VITALS: BP 129/78; PULSE 73; BMI 28.5
== END 2025-06-13 13:15 | disposition home or self-care (01) ==
LOC: HO.HGI 12:23
PROVIDERS: PCP Internal Medicine; Visit Provider Nurse Practitioner Family
DX: Z01.818 Encounter for other preprocedural examination (principal); Z12.11 Encounter for screening for malignant neoplasm of colon; Z80.0 Family history of malignant neoplasm of digestive organs; R74.01 Elevation of levels of liver transaminase levels
CPT/HCPCS: S0285

== ENCOUNTER 2025-07-21 07:07 | Outpatient (REF) | payer BC, SELFPAY ==
[2025-07-21 08:58] LABS: Gamma Glutamyl Transpeptidase 26 U/L (7-33)
[2025-07-26 01:29] LABS: Alk.Phos Iso. Macrohepatic 0 % (<=0); Alk.Phos Isoenzymes Bone 39 % (28-66); Alk.Phos Isoenzymes Intest 10 % (1-24); Alk.Phos Isoenzymes Liver 52 % (25-69); Alk.Phos Isoenzymes Placental 0 % (<=0); Alk.Phos Isoenzymes Total 116 U/L (37-153)
== END 2025-07-21 07:08 | disposition home or self-care (01) ==
LOC: HO.LAB 07:07
PROVIDERS: PCP Internal Medicine; Visit Provider Nurse Practitioner Family
DX: R74.8 Abnormal levels of other serum enzymes (principal)
CPT/HCPCS: 36415; 82977; 84080